=== PATIENT | male | born 1980 | race Two or more races ===

== ENCOUNTER 2020-05-16 07:03 | Emergency (ER) | payer MEDICAID, OTHER ==
[~2020-05-16] VITALS: Ht 170.2 cm; Wt 81.6 kg
[2020-05-16] MEDS ORDERED: SODIUM CHLORIDE 0.9% 1,000 ML IVB ONE (07:39)
[2020-05-16] MEDS ORDERED: ALUM & MAG HYDROX-SIMETH LIQ(MAALOX) 30 ML PO ONE (07:45)
[2020-05-16] MEDS ORDERED: METOCLOPRAMIDE HCL 5MG/ml INJ 2ml VIAL IV ONE (07:45)
[2020-05-16] MEDS ORDERED: FAMOTIDINE 20 MG TAB PO ONE (07:45)
[2020-05-16] MEDS ORDERED: DONNATAL 5ml ORAL Elix (BELLADONNA ALK-PHENOBARB) PO ONE (07:45)
[2020-05-16 08:33] LABS: Albumin 3.8 g/dL (3.4-5.0); Anion Gap 12 (5-15); Blood Urea Nitrogen 7 mg/dL (7-18); Calcium 8.8 mg/dL (8.5-10.1); Carbon Dioxide 22 mmol/L (21-32); Chloride 99 mmol/L (98-107); Glucose 84 mg/dL (74-106); Magnesium 2.1 mg/dL (1.6-2.6); Potassium 3.7 mmol/L (3.5-5.1); Sodium 133 mmol/L (136-145)
[2020-05-16 08:36] LABS: Basophils # (auto) 0 10 ^3/uL (0-0.2); Basophils % (auto) 0.6 % (0.0-2.0); Eosinophils # (auto) 0 10 ^3/uL (0-0.8); Eosinophils % (auto) 0.2 % (0.0-7.0); Hemoglobin 9.9 g/dL (13.5-17.5); Lymphocytes # (auto) 0.4 10 ^3/uL (0.4-5.4); Lymphocytes % (auto) 10.9 % (10.0-50.0); Mean Corpuscular Hemoglobin 21.4 pg (28.0-32.0); Mean Corpuscular Hgb Conc. 30.9 g/dL (32.0-36.0); Mean Corpuscular Volume 69.4 fL (80.0-100.0); Monocytes # (auto) 0.3 10 ^3/uL (0-1.3); Monocytes % (auto) 8.2 % (0.0-12.0); Neutrophils # (auto) 3.2 10 ^3/uL (1.6-8.6); Neutrophils % (auto) 80.1 % (37.0-80.0); Nucleated Red Blood Cells % 0.1 %; Platelet Count (auto) 66 10^3/uL (140-450); Red Blood Cells 4.61 10^6/uL (4.5-5.90); Red Cell Distribution Width 19.7 % (11.8-14.3)
[2020-05-16 08:42] LABS: Alanine Aminotransferase 25 U/L (16-61); Alkaline Phosphatase 122 U/L (45-117); Aspartate Aminotransferase 26 U/L (15-37); Bilirubin, Total 2.2 mg/dL (0.2-1.0); Blood Alcohol < 3.0 mg/dL (0-5); GFR African American 172 mL/min; GFR Non-African American 142 mL/min; Total Protein 8.2 g/dL (6.4-8.2)
[2020-05-16 08:44] LABS: BUN/Creatinine Ratio 10.4
[2020-05-16 09:46] LABS: Urine Bacteria NONE SEEN /hpf (None Seen); Urine Blood Negative /uL (Negative); Urine Specific Gravity 1.025 (1.001-1.035); Urine WBC 3 /hpf (0 - 3)
[2020-05-16] MEDS ORDERED: FOLIC ACID 1 MG, MULTIPLE VITAMIN 10 ML, MAGNESIUM SULF SDV 50% 8 MEQ, THIAMINE INJ 100... INJ SCH ×5 (12:00)
[2020-05-16 13:56] LABS: Amphetamine Screen, Urine NEGATIVE (NEGATIVE); Barbiturate Scree,Urine NEGATIVE (NEGATIVE); Benzodiazephine Screen, Urine NEGATIVE (NEGATIVE); Cannabinoid Screen, Urine NEGATIVE (NEGATIVE); Cocaine Screen, Urine NEGATIVE (NEGATIVE); Opiate Scree,Urine NEGATIVE (NEGATIVE); Phencyclidine Screen, Urine NEGATIVE (NEGATIVE)
[2020-05-16] MEDS ORDERED: LORazepam 0.5 MG TAB PO ONE (20:45)
[2020-05-16] MEDS ORDERED: traZODone HCL 50 MG TAB PO ONE (22:00)
[2020-05-17] MEDS ORDERED: LORazepam 0.5 MG TAB PO ONE (20:00)
[2020-05-17] MEDS: traZODone HCL 50 MG TAB PO SCH (22:52)
[2020-05-18] MEDS ORDERED: LORazepam 0.5 MG TAB PO ONE (21:30)
[2020-05-18] MEDS: traZODone HCL 50 MG TAB PO SCH (21:31)
[2020-05-19] MEDS ORDERED: LORazepam 0.5 MG TAB PO ONE ×2 (16:45→17:00)
[2020-05-19] MEDS: traZODone HCL 50 MG TAB PO SCH (21:23)
[2020-05-20] MEDS ORDERED: LORazepam 0.5 MG TAB PO ONE ×2 (13:15→20:45)
[2020-05-20] MEDS ORDERED: traZODone HCL 50 MG TAB PO ONE (20:45)
[2020-05-21] MEDS ORDERED: LORazepam 0.5 MG TAB PO ONE (15:15)
[2020-05-22] MEDS ORDERED: traZODone HCL 50 MG TAB PO ONE (00:30)
[2020-05-22] MEDS ORDERED: traZODone HCL 50 MG TAB PO PRN (00:40)
[2020-05-22 09:00] VITALS: BP 101/55
== END 2020-05-22 17:03 | disposition still patient (30) ==
LOC: ER 07:03 → EDBD 07:03 → ER 05-22 17:03
DX: D50.9 Iron deficiency anemia, unspecified (principal); D69.6 Thrombocytopenia, unspecified; I10 Essential (primary) hypertension; F10.10 Alcohol abuse, uncomplicated; R45.851 Suicidal ideations; Z20.828 Contact with and (suspected) exposure to other viral communicable diseases; Z59.0 Homelessness
CPT/HCPCS: 36415; 71046; 80053; 80307; 80320; 81001; 83690; 83735; 85025; 87426; 93005; 96361; 96365; 96366; 96375; 99285; C9803; J2765; J3411; J3475; J7030; U0003